=== PATIENT | female | born 1980 | race African-American/Black ===

== ENCOUNTER 2018-07-12 19:57 | Emergency (ER) | payer MEDICAID ==
[~2018-07-12] VITALS: Ht 167.6 cm; Wt 85.0 kg
[2018-07-13 02:17] VITALS: BP 118/71
== END 2018-07-13 10:00 | disposition home or self-care (01) ==
LOC: EDBD 19:57 → ER 07-13 09:37
DX: M54.5 Low back pain (principal)
CPT/HCPCS: 81025; 99283

== ENCOUNTER 2018-07-30 09:13 | Emergency (ER) | payer MEDICAID ==
[~2018-07-30] VITALS: Ht 170.2 cm; Wt 87.3 kg
[2018-07-30] MEDS ORDERED: IBUPROFEN 600MG TABLET PO ONE (11:45)
[2018-07-30 11:51] VITALS: BP 139/77
== END 2018-07-30 11:49 | disposition home or self-care (01) ==
LOC: ER 09:13
DX: R10.2 Pelvic and perineal pain (principal)
CPT/HCPCS: 81025; 99282

== ENCOUNTER 2023-09-27 17:22 | Emergency (ER) | payer MEDICAID ==
[~2023-09-27] VITALS: Ht 170.2 cm; Wt 91.0 kg
[2023-09-27 17:33] VITALS: BP 130/76; O2SAT 99
[2023-09-27] MEDS ORDERED: FLUT9.9S BOTHNSTRLS (17:53)
[2023-09-27] MEDS ORDERED: AMOX1TAB16 MT (17:53)
[2023-09-27] MEDS ORDERED: CETI10CA11 MT (17:54)
[2023-09-27] MEDS ORDERED: PSEU60TA99 MT (17:54)
[2023-09-27 18:04] VITALS: PULSE 89; RESP 18; TEMP 98.2
== END 2023-09-27 18:05 | disposition home or self-care (01) ==
LOC: ER 17:22
DX: H69.81 Other specified disorders of Eustachian tube, right ear (principal)
CPT/HCPCS: 99283